=== PATIENT | male | born 1960 | race Caucasian/White ===

== ENCOUNTER 2016-12-05 13:08 | Emergency (ER) | payer SELFPAY ==
[~2016-12-05] VITALS: Ht 172.7 cm; Wt 75.0 kg
[2016-12-05 13:09] VITALS: BP 139/97; PULSE 70; RESP 16; TEMP 97.1; O2SAT 100
[2016-12-05] MEDS ORDERED: CIPR500T2 PO (14:06)
[2016-12-05] MEDS ORDERED: CEPH-460 PO (14:06)
--- NOTE | 2016-12-05 14:07 | PD ---
HPI Chief Complaint: Injury Time Seen by Provider: 14:04 Travel History International Travel<30 days: No Contact w/Intl Traveler<30days: No Traveled to known affect area: No History of Present Illness HPI 56-year-old male presents to the emergency department with complaint of a puncture wound to the bottom of his left foot from a oralia nail and is requesting tetanus update. Denies paresthesias, loss of sensation, decreased range of motion, decreased strength to the affected extremity. Denies pain to the area. Denies fever, chills, nausea, vomiting. Has not taken any medications to alleviate his symptoms. No known allergies. No other modifying factors or associated signs and symptoms. PFSH Past Medical History Medical History: Denies Significant Hx Past Surgical History Other Surgery: Yes (kneecap repair) Social History Alcohol Use: Yes (ocassional) Tobacco Use: No Substance Use: No Allergies-Medications (Allergen,Severity, Reaction): Coded Allergies: No Known Allergies (Unverified , 12/05/16) Reported Meds & Prescriptions Reported Meds & Active Scripts Active Keflex (Cephalexin) 500 Mg Cap 500 Mg PO Q8H 10 Days Ciprofloxacin (Ciprofloxacin HCl) 500 Mg Tab 500 Mg PO BID 10 Days Review of Systems Except as stated in HPI: all other systems reviewed are Neg Physical Exam Narrative GENERAL: Well-nourished, well-developed male patient, in no acute distress SKIN: Warm and dry. Puncture wound noted to the bottom of the left foot to the distal foot pad; area is without erythema, edema, drainage. HEAD: Atraumatic. Normocephalic. EYES: Pupils equal and round. No scleral icterus. No injection or drainage. ENT: Mucosa pink and moist. Airway patent. NECK: Trachea midline. CARDIOVASCULAR: Regular rate. RESPIRATORY: No accessory muscle use. GASTROINTESTINAL: Flat. MUSCULOSKELETAL: No obvious deformities. No clubbing. No cyanosis. No edema. NEUROLOGICAL: Awake and alert. Oriented 3. No obvious cranial nerve deficits. Motor grossly within normal limits. Normal speech. PSYCHIATRIC: Appropriate mood and affect; insight and judgment normal. Data Data Last Documented VS Vital Signs Date Time Temp Pulse Resp B/P Pulse Ox O2 Delivery O2 Flow Rate FiO2 12/05/16 13:09 97.1 70 16 139/97 100 Room Air Orders Tetanus/Diphtheria Tox Adult (Tetanus/Di (12/05/16 14:15) MDM Medical Decision Making Medical Screen Exam Complete: Yes Emergency Medical Condition: Yes Medical Record Reviewed: Yes Differential Diagnosis puncture wound, medical care, tetanus vaccination Narrative Course 56-year-old male with puncture wound from a oralia nail to the bottom of the left foot. Tetanus updated in the ER. Keflex and Cipro prescribed for home. Patient is medically cleared and stable for discharge. Discussed reasons to return to the emergency department. Instructed patient to follow up with primary care provider. Patient agrees with treatment plan. The patients vital signs are stable and the patient is stable for outpatient follow-up and treatment. Patient discharged home, stable and in no acute distress. Diagnosis Primary Impression: Puncture wound of skin from metal nail Referrals: Primary Care Physician Patient Instructions: General Instructions, Puncture Wound (ED) Departure Forms: Tests/Procedures, Work Release Enter return to work date: Dec 06, 2016 Additional Instructions: Take antibiotics as prescribed Keep area clean and dry Ibuprofen or Tylenol as directed and as needed for pain and inflammation Ice pack to area as needed to decrease pain Follow-up with primary care provider Return to the emergency department immediately with worsening of symptoms, particularly if reddened streaks up or down the affected extremity from the puncture site, fever, numbness/tingling in the affected extremity, loss of sensation in the affected extremity, severe swelling of the affected Med/Other Pt SpecificInfo: Prescription(s) given Scripts Cephalexin (Keflex)500 Mg [id number] Mg PO Q8H 10 Days Ref 0 Prov:Jodi Jones 12/05/16 Ciprofloxacin 500 Mg [id number] Mg PO BID 10 Days Ref 0 Prov:Jodi Jones 12/05/16 Disposition: 01 DISCHARGE HOME Condition: Stable Jodi Jones Dec 05, 2016 14:06
[2016-12-05] MEDS ORDERED: TETANUS/DIPHTHERIA TOXOID ADULT 0.5 ML VIAL IM ONE (14:15)
== END 2016-12-05 14:15 | disposition home or self-care (01) ==
LOC: NEPB 13:08
DX: S91.332A Puncture wound without foreign body, left foot, initial encounter (principal); Z23 Encounter for immunization; W45.0XXA Nail entering through skin, initial encounter; Y93.9 Activity, unspecified; Y92.9 Unspecified place or not applicable; Y99.9 Unspecified external cause status
CPT/HCPCS: 90471; 90714